=== PATIENT | male | born 1990 | race Caucasian/White ===

== ENCOUNTER 2017-05-31 09:22 | Inpatient (IN) | payer MEDICAID ==
[~2017-05-31] VITALS: Ht 182.9 cm; Wt 80.6 kg
[2017-05-31] MEDS ORDERED: QUET50TA PO (09:49)
[2017-05-31] MEDS ORDERED: HALO5TAB23 PO (09:49)
[2017-05-31] MEDS ORDERED: LISI-622 PO (09:49)
[2017-05-31] MEDS ORDERED: DIPH25CA85 PO (09:49)
[2017-05-31] MEDS ORDERED: PROP60CA2 PO (09:49)
[2017-05-31] MEDS ORDERED: LORA-192 PO (09:49)
[2017-05-31] MEDS ORDERED: ALPR2TAB2 PO (09:49)
[2017-05-31] MEDS ORDERED: CLON0.1T PO (09:49)
[2017-05-31 10:10] LABS: BASOPHILS # (AUTO) 0.07 K/uL (0.00-0.20); BASOPHILS % (AUTO) 0.6 % (0.0-2.0); EOSINOPHILS # (AUTO) 0.11 K/uL (0.00-0.70); EOSINOPHILS % (AUTO) 0.93 % (1.0-6.0); HEMATOCRIT 40.8 % (41-53); HEMOGLOBIN 13.5 g/dL (13.5-17.5); LYMPHOCYTES # (AUTO) 1.6 K/uL (1.0-4.8); LYMPHOCYTES % (AUTO) 13.5 % (22.0-44.0); MEAN CORPUSCULAR HEMOGLOBIN 29.2 pg (26.0-34.0); MEAN CORPUSCULAR VOLUME 88 fL (80-100); MONOCYTES # (AUTO) 0.6 K/uL (0.1-1.0); MONOCYTES % (AUTO) 4.7 % (2.0-9.0); NEUTROPHILS # (AUTO) 9.4 K/uL (1.8-7.7); NEUTROPHILS % (AUTO) 80.3 % (40.0-70.0); PLATELET COUNT (AUTO) 294 K/uL (150-450); RED BLOOD CELL COUNT(AUTO) 4.63 MIL/uL (4.50-5.90); WHITE BLOOD COUNT (AUTO) 11.8 K/uL (4.5-11.0)
[2017-05-31 10:18] LABS: ANION GAP 11 mmol/L (8-16); CALCIUM, TOTAL 8.4 mg/dL (8.8-10.5); CARBON DIOXIDE 24 mmol/L (22-29); CHLORIDE 110 mmol/L (98-107); CREATININE 0.83 mg/dL (0.60-1.30); GLOMERULAR FILTR. RATE CALC > 60 mL/min (>60); SODIUM SERUM 145 mmol/L (136-145); UREA NITROGEN, BLOOD 10 mg/dL (7-18)
[2017-05-31 10:26] LABS: ALANINE AMINOTRANSFERASE 26 U/L (12-78); ALBUMIN 3.3 g/dL (3.4-5.0); ASPARTATE AMINOTRANSFERASE 15 U/L (15-37); BILIRUBIN,TOTAL 0.4 mg/dL (0.1-1.0); TOTAL PROTEIN, SERUM 6.5 g/dL (6.4-8.2)
[2017-05-31] MEDS ORDERED: DiphenhydrAMINE HCL 50 MG/ML VIAL IM ONE (10:30)
[2017-05-31] MEDS ORDERED: HALOPERIDOL LACTATE 5 MG/ML VIAL IM ONE (10:30)
[2017-05-31] MEDS ORDERED: LORazepam 2 MG/ML VIAL IM ONE (10:30)
[2017-05-31 10:34] LABS: RBC MORPHOLOGY COMMENT ABNORMAL RBC MORPH
[2017-05-31] MEDS ORDERED: ZOLPIDEM TARTRATE 10 MG TABLET PO PRN (11:15)
[2017-05-31] MEDS ORDERED: LORazepam 2 MG TABLET PO PRN (11:15)
[2017-05-31 14:40] VITALS: BP 141/85
[2017-05-31] MEDS: HALOPERIDOL 5 MG TABLET PO PRN (15:53)
[2017-05-31 16:32] VITALS: BP 135/89
[2017-05-31] MEDS ORDERED: OLANZapine 5 MG RAPDIS TABLET PO SCH (21:00)
[2017-06-01 07:05] LABS: CHOL/HDL RATIO 3.3 (4.2-7.3)
[2017-06-01] MEDS ORDERED: MAGNESIUM HYDROXIDE SUSPENSION 30 ML UDCUP PO PRN (07:15)
[2017-06-01] MEDS ORDERED: MAG HYDROX/AL HYDROX/SIMETH ES 30 ML SUSPENSION UDCUP PO PRN (07:15)
[2017-06-01] MEDS ORDERED: CloNIDine HCL 0.1 MG TABLET PO PRN (07:15)
[2017-06-01] MEDS ORDERED: LOPERAMIDE HCL 2 MG CAPSULE PO PRN (07:15)
[2017-06-01] MEDS ORDERED: PETROLATUM,WHITE 71 GM JELLY TP PRN (07:15)
[2017-06-01] MEDS ORDERED: ACETAMINOPHEN 325 MG TABLET PO PRN (07:15)
[2017-06-01] MEDS ORDERED: ALBUTEROL SULFATE HFA 90 MCG/PUFF 8 GM INHALER IH PRN (07:15)
[2017-06-01] MEDS ORDERED: BACITRACIN 28.4 GM OINTMENT TP PRN (07:15)
[2017-06-01] MEDS ORDERED: BENZOCAINE/MENTHOL LOZENGE MM PRN (07:15)
[2017-06-01] MEDS ORDERED: ONDANSETRON HCL 4 MG TABLET PO PRN (07:15)
[2017-06-01] MEDS ORDERED: IBUPROFEN 600 MG TABLET PO PRN (07:15)
[2017-06-01 08:30] VITALS: BP 133/72
[2017-06-01] MEDS: FLUoxetine HCL 20 MG CAPSULE PO SCH (09:02)
[2017-06-01] MEDS: MULTIVITAMINS WITH MINERALS, THERAPEUTIC TABLET PO SCH (09:02)
[2017-06-01] MEDS: HALOPERIDOL 5 MG TABLET PO PRN ×3 (09:04→18:37)
[2017-06-01] MEDS: LISINOPRIL 5 MG TABLET PO SCH (09:05)
[2017-06-01] MEDS ORDERED: DiphenhydrAMINE HCL 50 MG/ML VIAL ONE (10:59)
[2017-06-01] MEDS ORDERED: HALOPERIDOL LACTATE 5 MG/ML VIAL IM ONE (11:00)
[2017-06-01] MEDS ORDERED: DiphenhydrAMINE HCL 50 MG/ML VIAL IM ONE (11:00)
[2017-06-01 17:07] VITALS: BP 125/76
[2017-06-01] MEDS: QUEtiapine FUMARATE 200 MG TABLET PO SCH (20:54)
[2017-06-02 08:28] VITALS: BP 140/89
[2017-06-02] MEDS: QUEtiapine FUMARATE 200 MG TABLET PO SCH ×2 (08:47→16:25)
[2017-06-02] MEDS: LISINOPRIL 5 MG TABLET PO SCH (08:47)
[2017-06-02] MEDS: MULTIVITAMINS WITH MINERALS, THERAPEUTIC TABLET PO SCH (08:47)
[2017-06-02] MEDS: FLUoxetine HCL 20 MG CAPSULE PO SCH (08:47)
[2017-06-02] MEDS: HALOPERIDOL 5 MG TABLET PO PRN ×2 (08:47→13:04)
[2017-06-02] MEDS ORDERED: FLUO-191 PO (14:27)
[2017-06-02] MEDS ORDERED: MULT1CAP36 PO (14:38)
== END 2017-06-02 16:15 | disposition home or self-care (01) | DRG 750 ==
LOC: EMS 09:24 → 3EI 11:31 → 3EC 06-01 13:24
PROVIDERS: ADMIT Psychiatry & Neurology Psychiatry; ATTEND Psychiatry & Neurology Psychiatry
DX: F25.1 Schizoaffective disorder, depressive type (principal); E83.51 Hypocalcemia; I10 Essential (primary) hypertension; F19.20 Other psychoactive substance dependence, uncomplicated; F60.3 Borderline personality disorder; D72.829 Elevated white blood cell count, unspecified; R73.9 Hyperglycemia, unspecified; Z72.0 Tobacco use; G47.00 Insomnia, unspecified; F12.10 Cannabis abuse, uncomplicated
CPT/HCPCS: 96372; 99285; G0480; J1200; J1630; J2060